=== PATIENT | male | born 1980 | race Caucasian/White ===

== ENCOUNTER 2024-07-12 10:29 | Emergency (ER) | payer OTHER ==
[2024-07-12 10:49] LABS: APPEARANCE,URINE CLEAR (CLEAR); COLOR,URINE YELLOW; GLUCOSE,URINE NEGATIVE (NEGATIVE); KETONES,URINE NEGATIVE (NEGATIVE); PH,URINE 5.5 (5.0-8.0); PROTEIN,URINE NEGATIVE (NEGATIVE)
[2024-07-12 10:50] LABS: BILIRUBIN,URINE NEGATIVE (NEGATIVE); LEUKOCYTE ESTERASE,URINE NEGATIVE (NEGATIVE); NITRITE,URINE NEGATIVE (NEGATIVE); OCCULT BLOOD,URINE MODERATE (NEGATIVE); RBC,URINE 0-5 /HPF; UROBILINOGEN,URINE 0.2 E.U./dL (0.2-1.0); WBC,URINE 0-5 /HPF
[2024-07-12] MEDS ORDERED: Sodium Chloride 0.9% 10 ML Syringe FLUSH PRN (11:12)
[2024-07-12] MEDS ORDERED: Naloxone 2 MG/2 ML Syringe IVPUSH PRN (11:13)
[2024-07-12] MEDS: Ketorolac 15 MG/ML SDV IVPUSH ONE (11:15)
[2024-07-12 11:41] LABS: BASOPHILS ABSOLUTE AUTO 0.03 K/uL (0.02-0.10); BASOPHILS PERCENT AUTO 0.4 % (0.0-0.5); EOSINOPHILS ABSOLUTE AUTO 0.35 K/uL (0.04-0.40); EOSINOPHILS PERCENT AUTO 5.1 % (1.0-5.0); HEMATOCRIT 42.6 % (40.0-54.0); LYMPHOCYTES ABSOLUTE AUTO 1.98 K/uL (1.50-4.00); MEAN CORPUSCULAR HEMOGLOBIN 30.9 pg (27.0-32.0); MEAN CORPUSCULAR HGB CONC 35.2 g/dL (31.0-35.0); MEAN CORPUSCULAR VOLUME 88 fL (76-96); MEAN PLATELET VOLUME 8.8 fL (6.0-10.0); MONOCYTES ABSOLUTE AUTO 0.48 K/uL (0.20-0.80); NEUTROPHILS ABSOLUTE AUTO 3.99 K/uL (2.00-7.50); NEUTROPHILS PERCENT AUTO 58.5 % (45.0-70.0); PLATELET COUNT,PLT 220 K/uL (150-400); RED BLOOD CELL COUNT 4.85 M/uL (4.50-6.50); RED CELL DISTRIBUTION WIDTH 12.1 % (11.0-16.0); WHITE BLOOD CELL COUNT,WBC 6.8 K/uL (4.0-11.0)
[2024-07-13] MEDS: Ondansetron 4 MG/2 ML SDV IVPUSH ONE (08:50)
[2024-07-13] MEDS: Morphine 4 MG/ML VIAL IVPUSH ONE (08:50)
== END 2024-07-12 12:42 | disposition home or self-care (01) ==
LOC: LB.ED 10:29
DX: N20.2 Calculus of kidney with calculus of ureter (principal); N41.1 Chronic prostatitis
CPT/HCPCS: 36415; 51798; 74176; 81001; 85025; 96374; 99283; 99284-25; J1885